=== PATIENT | male | born 1960 ===

== ENCOUNTER 2024-11-15 12:00 | Inpatient (IN) | payer OTHER ==
[~2024-11-15] VITALS: Ht 274.3 cm; Wt 104.3 kg
[2024-11-15] MEDS ORDERED: LIPITOR20 MG PO (12:51)
[2024-11-15] MEDS ORDERED: HYZAAR 100-12.1 EACH PO (12:51)
[2024-11-15] MEDS ORDERED: CARDIZEM120 MG PO (12:51)
[2024-11-15] MEDS ORDERED: ZOCOR20 MG PO (12:52)
[2024-11-15] MEDS ORDERED: NEURONTIN800 MG PO (12:52)
[2024-11-15] MEDS ORDERED: PEPCID AC20 MG (12:52)
[2024-11-22] MEDS ORDERED: PERCOCET 5-3251 EACH PO (10:39)
[2024-11-22] MEDS ORDERED: COLACE100 MG PO (10:41)
[2024-11-22] MEDS ORDERED: MEDROLPACK PO (10:41)
[2024-11-22] MEDS ORDERED: ZOFRAN8 MG PO (10:41)
[2024-11-22] MEDS ORDERED: ENALAPRILAT DIHYDRATE 1.25 MG/ML VIAL IV PRN (11:00)
[2024-11-22] MEDS ORDERED: PROMETHAZINE HCL 50 MG/ML AMPUL IM PRN (11:00)
[2024-11-22] MEDS ORDERED: 0.9 % SODIUM CHLORIDE 1,000 ML IV SCH (11:00)
[2024-11-22] MEDS ORDERED: MORPHINE SULFATE 4 MG/ML CARTRIDGE IV SCH (13:00)
[2024-11-22] MEDS ORDERED: VANCOMYCIN HCL 1,000 MG VIAL ONE ×4 (14:16→20:33)
[2024-11-22] MEDS ORDERED: CEFAZOLIN SODIUM 1,000 MG VIAL ONE ×2 (14:17→20:34)
[2024-11-22] MEDS ORDERED: HEMOSTATIC MATRIX WITH THROMBIN KIT TOP ONE ×2 (14:46→15:42)
[2024-11-22] MEDS ORDERED: ISOPROPYL ALCOHOL 30 ML OUNCE TOP ONE (14:47)
[2024-11-22] MEDS ORDERED: METHYLPREDNISOLONE SOD SUCC 125 MG VIAL ONE ×3 (14:47→20:33)
[2024-11-22] MEDS ORDERED: METHYLPREDNISOLONE ACETATE 80 MG/ML VIAL ONE ×2 (14:48→15:41)
[2024-11-22 15:51] LABS: COVID-19 AG NEGATIVE (NEGATIVE)
[2024-11-22] MEDS ORDERED: FAMOtidine 20 MG TABLET PO SCH (17:00)
[2024-11-22] MEDS ORDERED: ALBUTEROL SULFATE 3 ML/2.5 MG AMPUL.NEB IH SCH (17:00)
[2024-11-22] MEDS ORDERED: DOCUSATE SODIUM 100MG CAP PO SCH (17:00)
[2024-11-22] MEDS ORDERED: CEFAZOLIN SODIUM 1,000 MG in 0.9 % SODIUM CHLORIDE 50 ML IV SCH (17:00)
[2024-11-22] MEDS ORDERED: METHYLPREDNISOLONE SOD SUCC 125 MG VIAL IV SCH (17:00)
[2024-11-22] MEDS ORDERED: MORPHINE SULFATE 4 MG/ML VIAL IV ONE (19:40)
[2024-11-22] MEDS ORDERED: ACETAMINOPHEN 500 MG GEL..CAP PO SCH (20:00)
[2024-11-22] MEDS ORDERED: VANCOMYCIN HCL 1,000 MG VIAL IV SCH (21:00)
[2024-11-22] MEDS ORDERED: GABAPENTIN 800 MG TABLET PO SCH (21:00)
[2024-11-22 22:36] VITALS: BP 138/74; O2SAT 95
[2024-11-23] MEDS ORDERED: SODIUM CHLORIDE 0.45 % 1,000 ML IV SCH
[2024-11-23 00:09] VITALS: O2SAT 90
[2024-11-23 03:10] VITALS: BP 157/87; O2SAT 91
[2024-11-23 03:13] VITALS: O2SAT 90
[2024-11-23] MEDS ORDERED: OxyCODONE HCL 5 MG TABLET (ROXICODONE) PO PRN (06:01)
[2024-11-23] MEDS ORDERED: VANCOMYCIN HCL 1,000 MG VIAL ONE (06:58)
[2024-11-23 08:00] VITALS: BP 147/77; O2SAT 95
[2024-11-23] MEDS ORDERED: TAMSULOSIN HCL 0.4 MG CAP PO SCH (09:00)
[2024-11-23] MEDS ORDERED: ATORVASTATIN CALCIUM 20 MG TABLET PO SCH (09:00)
[2024-11-23] MEDS ORDERED: DILTIAZEM HCL 120 MG CAP.SR.24H PO SCH (09:00)
[2024-11-23] MEDS ORDERED: LOSARTAN/HYDROCHLOROTHIAZIDE 1 TAB TABLET PO SCH (09:00)
[2024-11-23 09:13] VITALS: O2SAT 91
== END 2024-11-23 14:16 | disposition home or self-care (01) | DRG 473 ==
LOC: O/R 11-22 08:10 → SURH 11-22 12:00 → SURG 11-22 18:27
PROVIDERS: ADMIT Orthopaedic Surgery Orthopaedic Surgery of the Spine; ATTEND Orthopaedic Surgery Orthopaedic Surgery of the Spine
PROC: 0RT30ZZ Resection of Cervical Vertebral Disc, Open Approach (ICD-10-PCS; 2024-11-22)
PROC: 07DS0ZZ Extraction of Vertebral Bone Marrow, Open Approach (ICD-10-PCS; 2024-11-22)
PROC: 4A1104G Monitoring of Peripheral Nervous Electrical Activity, Intraoperative, Open Approach (ICD-10-PCS; 2024-11-22)
PROC: 0RG10A0 Fusion of Cervical Vertebral Joint with Interbody Fusion Device, Anterior Approach, Anterior Column, Open Approach (ICD-10-PCS; principal; 2024-11-22 15:15)
PROC: 4A12X4Z Monitoring of Cardiac Electrical Activity, External Approach (ICD-10-PCS; 2024-11-23)
DX: M50.023 Cervical disc disorder at C6-C7 level with myelopathy (principal); I10 Essential (primary) hypertension; E78.00 Pure hypercholesterolemia, unspecified; Z98.1 Arthrodesis status